=== PATIENT | female | born 1970 | race Native Hawaiian/Other Pacific Islander ===

== ENCOUNTER 2021-10-27 09:36 | Outpatient (CLI) | payer OTHER | END 2021-10-27 20:04 | disposition home or self-care (01) | LOC: MAMMO 09:36 | PROVIDERS: ATTEND Nurse Practitioner Family | DX: N60.19 Diffuse cystic mastopathy of unspecified breast (principal); N64.59 Other signs and symptoms in breast | CPT/HCPCS: G0279 ==